=== PATIENT | male | born 1965 ===

== ENCOUNTER 2024-08-13 06:18 | Day surgery (SDC) | payer OTHER ==
[~2024-08-13] VITALS: Ht 188 cm; Wt 155.9 kg
[~2024-08-13 06:18] MED LIST: Lidocaine 1%-Epineph 1:100000 20 ML MDV ONE; Sodium Bicarb 8.4% 1 MEQ/ML 50 ML Vial ONE
[2024-08-13] MEDS ORDERED: NS 500 ML IV ONE ×2 (06:20→07:07)
[2024-08-13] MEDS ORDERED: propofoL 20 ML IV ONE (06:21)
[2024-08-13] MEDS ORDERED: [UNRECOGNIZED DRUG - OTHER] (06:46)
[2024-08-13] MEDS ORDERED: VALTREX50013 (06:46)
[2024-08-13 07:46] VITALS: BP 148/98
--- NOTE | 2024-08-13 08:19 | NUR ---
08/13/24 0819 Samantha Lovell FRIEND KATH NOTIFIED PATIENT IS READY FOR DISCHARGE
== END 2024-08-13 08:18 | disposition home or self-care (01) ==
LOC: ORSCSDS 06:18
PROVIDERS: Orthopaedic Surgery
PROC: 01N54ZZ Release Median Nerve, Percutaneous Endoscopic Approach (ICD-10-PCS; principal; 2024-08-13 07:30)
DX: G56.03 Carpal tunnel syndrome, bilateral upper limbs (principal); Z87.891 Personal history of nicotine dependence; I10 Essential (primary) hypertension; E66.9 Obesity, unspecified; Z68.41 Body mass index [BMI] 40.0-44.9, adult; Z79.899 Other long term (current) drug therapy
CPT/HCPCS: J2704; J7040

== ENCOUNTER 2024-09-10 06:08 | Day surgery (SDC) | payer OTHER ==
[~2024-09-10] VITALS: Ht 188 cm; Wt 158.4 kg
[~2024-09-10 06:08] MED LIST changes: +VALTREX50013; +[UNRECOGNIZED DRUG - OTHER]
[2024-09-10] MEDS ORDERED: NS 500 ML IV ONE ×2 (06:10→06:30)
[2024-09-10] MEDS ORDERED: CeFAZolin Sodium 2,000 MG VIAL ONE (06:38)
[2024-09-10 06:41] VITALS: BP 170/108
[2024-09-10] MEDS ORDERED: Ketorolac Tromethamine 30mg Vial ONE (07:16)
[2024-09-10] MEDS ORDERED: propofoL 20 ML IV ONE (07:16)
[2024-09-10] MEDS ORDERED: Ondansetron HCl 2 MG / ML 2ML Vial ONE (07:17)
[2024-09-10] MEDS ORDERED: Dexamethasone Sod Phos 10 MG/ML 1ML VIAL ONE (07:17)
== END 2024-09-10 08:03 | disposition home or self-care (01) ==
LOC: ORSCSDS 06:08
PROVIDERS: Orthopaedic Surgery
PROC: 01N54ZZ Release Median Nerve, Percutaneous Endoscopic Approach (ICD-10-PCS; principal; 2024-09-10 07:30)
DX: G56.01 Carpal tunnel syndrome, right upper limb (principal); I10 Essential (primary) hypertension; Z87.891 Personal history of nicotine dependence; E66.01 Morbid (severe) obesity due to excess calories; Z68.41 Body mass index [BMI] 40.0-44.9, adult; Z79.899 Other long term (current) drug therapy
CPT/HCPCS: J0690; J1100; J1885; J2405; J2704; J7040

== ENCOUNTER → 2024-09-15 | Outpatient (CLI) | payer OTHER ==
[~2024-09-15] MED LIST changes: -Lidocaine 1%-Epineph 1:100000 20 ML MDV ONE; -Sodium Bicarb 8.4% 1 MEQ/ML 50 ML Vial ONE
[2024-09-15 15:54] LABS: BASOPHILS PERCENT AUTO 1 % (0-2); EOSINOPHILS ABSOLUTE AUTO 0.36 K/mm3 (0.00-0.68); EOSINOPHILS PERCENT AUTO 4 % (0-6); Hematocrit 44.4 % (37.0-53.0); Hemoglobin 15.1 g/dL (13.5-17.5); IMMATURE GRAN ABSOLUTE AUTO 0.14 K/mm3 (0.00-0.10); IMMATURE GRAN PERCENT AUTO 1 % (0-1); LYMPHOCYTES ABSOLUTE AUTO 2.63 K/mm3 (0.84-5.20); LYMPHOCYTES PERCENT AUTO 26 % (21-46); MONOCYTES ABSOLUTE AUTO 0.61 K/mm3 (0.16-1.47); MONOCYTES PERCENT AUTO 6 % (4-13); Mean Corpuscular HGB 30.5 pg (26.0-34.0); Mean Corpuscular Volume 90 fL (80-100); Mean Platelet Volume 8.4 fL (9.1-12.4); NEUTROPHILS ABSOLUTE AUTO 6.22 K/mm3 (1.96-9.15); NEUTROPHILS PERCENT AUTO 62 % (41-73); Platelet Count 264 K/mm3 (150-400); RDW Coefficient Variation 12.5 % (11.7-14.2); RDW Standard Deviation 40.4 fL (35.1-46.3); Red Blood Cell Count 4.95 M/mm3 (4.30-5.90); White Blood Cell Count 10.06 K/mm3 (4.00-11.30)
[2024-09-15 16:04] LABS: Albumin, Blood 3.7 g/dL (3.4-5.0); Albumin/Globulin Ratio 0.9 (0.8-1.8); Bilirubin, Total 0.4 mg/dL (0.1-1.0); Bun/Creatinine Ratio 18.6 (12.0-20.0); Calcium, Blood 9.5 mg/dL (8.5-10.1); Creatinine, Blood 1.02 mg/dL (0.60-1.20); Globulin, Blood 4.3 g/dL (2.2-4.0); Potassium, Blood 3.8 mmol/L (3.5-5.5)
== END ==
LOC: LAB SHORT 15:49 → LAB 15:49
PROVIDERS: Physician Assistant
DX: R10.9 Unspecified abdominal pain (principal)
CPT/HCPCS: 80053; 83690; 85025